=== PATIENT | female | born 1985 | race Caucasian/White ===

== ENCOUNTER 2017-01-20 21:45 | Inpatient (IN) | payer OTHER ==
[~2017-01-20] VITALS: Ht 172.7 cm; Wt 88.0 kg
--- NOTE | ~2017-01-20 | OR ---
ADMIT: 01/20/2017 RM/LOC: [address] [facility] MR#: [id number] [address] [address] JOCY BENNETT [address] [address] [facility] [place] [address] Operative/Delivery Room Report SEX: F AGE: 31 : 1985 SURGERY DATE: 01/21/2017 SURGEON: Leticia Sparks MD NAME OF PROCEDURE: Spontaneous vaginal delivery. PREOPERATIVE DIAGNOSES: 1. Intrauterine at 39-4/7th weeks' gestation. 2. Rh negative status. POSTOPERATIVE DIAGNOSES: 1. Intrauterine at 39-4/7th weeks' gestation. 2. Rh negative status. FINDINGS: Liveborn female infant. scores 7 at 1 minute, 9 at 5 minutes. Weight 8 pounds 15 ounces. ESTIMATED BLOOD LOSS: 400 mL. ANESTHESIA: Epidural. COMPLICATIONS: None. INDICATIONS FOR PROCEDURE: The patient is a 31-year-old 1, para 0, who presented to Labor and Delivery on 01/20/2017, with complaints of contractions. The patient progressed from 3 to 4 cm dilated. She then had minimal cervical change. Pitocin augmentation of labor was then started. The patient progressed through labor approximately 7 cm dilated. At that point, artificial rupture of membranes was performed. The patient then progressed through labor to completely dilated and pushed, bringing the 's vertex to the perineum. DESCRIPTION OF PROCEDURE: The patient was noted to be complete and pushing with the infant's vertex at the perineum. The patient pushed and the 's vertex delivered in the ANABELLA position over midline. She continued to push, anterior shoulder delivered, the posterior shoulder followed, and the ADMIT: 01/20/2017 RM/LOC: [address] [facility] MR#: [id number] [address] [place] [address], [place] [address] JOCY BENNETT [address] [address] [facility] [place] [address] Operative/Delivery Room Report SEX: F AGE: 31 : 1985 remainder of the infant delivered without difficulty as well. The was dried and handed off to the mother's abdomen where nursing personnel were in attendance. Twenty units of Pitocin were placed in IV bag to firm the uterus. The placenta delivered intact spontaneously. The cervix was examined and was noted to be free of lacerations. The vaginal vault and perineum were examined, there was noted to be a partial third-degree laceration. The sphincter muscle which was partially torn was brought together with 2 additional [id number] stitches of 2-0 Vicryl. The remainder of the repair was repaired in the usual fashion as first and second-degree perineal lacerations. The patient tolerated the procedure well. All sponge and needle counts were correct. The patient and infant recovered in the room in stable condition. Leticia Sparks MD/ garcia JOB #: [id number] CC: Leticia Sparks, Attending Physician Leticia Sparks, Family Physician
--- NOTE | ~2017-01-20 | FD ---
ADMIT: 01/20/2017 RM/LOC: [address] [facility] MR#: [id number] [address] [address] JOCY BENNETT [address] [address] [facility] [place] [address] Final Diagnosis SEX: F AGE: 31 : 1985 ADMISSION DATE: 01/20/2017 DISCHARGE DATE: 01/23/2017 FINAL DIAGNOSES: 1. Status post spontaneous vaginal delivery at 39 weeks' 5 days' estimated gestational age. 2. Rhesus negative. PROCEDURE: 1. Spontaneous vaginal delivery. 2. Third-degree perineal laceration repair. Leticia Sparks MD/ marcy JOB #: [id number] CC: Leticia Sparks MD, Attending Physician Leticia Sparks MD, Family Physician
--- NOTE | ~2017-01-20 | HP ---
ADMIT: 01/20/2017 RM/LOC: [address] [facility] MR#: [id number] [address] [address] JOCY BENNETT Jermaine [address] [address] [facility] [place] [address] History and Physical SEX: F AGE: 31 : 1985 DATE OF SERVICE: REASON FOR ADMISSION: Contractions. HISTORY OF PRESENT ILLNESS: The patient is a 31-year-old 1, para 0, who presented to Labor and Delivery at 39-4/7th weeks' gestation with complaints of contractions. The patient was noted to have cervical change on admission and was therefore admitted in active labor. The patient's has been complicated by Rh negative status, but has otherwise been uncomplicated. At the time of admission, she complained of contractions. She denied any vaginal bleeding or loss of fluid. LABORATORY DATA: Blood type O negative, antibody screen negative, RPR nonreactive, rubella immune, group B Strep negative, HIV negative. Gonorrhea and chlamydia negative, and hepatitis B surface antigen negative. PAST MEDICAL HISTORY: Noncontributory. PAST SURGICAL HISTORY: Tonsils and adenoids and right knee ACL repair in 2014. CURRENT MEDICATIONS: B complex vitamin daily, calcium supplement daily, potassium daily, and vitamins daily. ALLERGIES: BACTRIM, WHICH CAUSES RASH AND ITCHING. SOCIAL HISTORY: The patient is . She denies any alcohol, tobacco, or drug use. FAMILY HISTORY: Significant for father with hypertension. PHYSICAL EXAMINATION: VITAL SIGNS: On admission, blood pressure 130/90, pulse 101, temperature 96.5, and respirations 18. GENERAL: The patient is alert and oriented, no acute distress. HEART: Regular rate and rhythm without murmurs, gallops, or rubs. LUNGS: Clear to auscultation bilaterally. ADMIT: 01/20/2017 RM/LOC: [address] [facility] MR#: [id number] [address] [facility] [address] [place] [id number] VANSAIMAJOCY [address] [address] History and Physical SEX: F AGE: 31 : 1985 ABDOMEN: Soft, nontender, and gravid. EXTREMITIES: 1+ edema. No calf tenderness. heart tones are in the 140s with moderate variability and accelerations present. Contractions every 5 to 6 minutes, cervix 4 cm dilated, 90% effaced, and -1 station. ASSESSMENT AND PLAN: 1. A 31-year-old 1, para 0, at 39-4/7th weeks' gestation. 2. Active labor. Plan to admit in labor and will anticipate spontaneous vaginal delivery. 3. Rh negative. We will give RhoGAM if indicated . Leticia Sparks MD/ garcia JOB #: [id number] CC: Leticia Sparks, Attending Physician Leticia Sparks, Family Physician
[2017-01-24] MEDS ORDERED: IRON325 M1 PO (06:21)
[2017-01-24] MEDS ORDERED: PRENATAL VIT1 TAB PO (06:21)
[2017-01-24] MEDS ORDERED: NIPPLECREAM TP (06:21)
--- NOTE | 2017-02-21 09:38 | OR ---
ADMIT: 01/20/2017 RM/LOC: 229 [facility] MR#: [id number] [address] [address] VANSAIMA JOCY Dean [address] [address] [facility] [place] [address] Operative/Delivery Room Report SEX: F AGE: 31 : 1985 SURGERY DATE: 01/21/2017 SURGEON: Leticia Sparks MD PROCEDURE: Removal of epidural catheter. INDICATIONS FOR PROCEDURE: The patient is a 31-year-old 1, para 0, who presented to Labor and Delivery in active labor. The patient had an epidural placed for pain control during labor. DESCRIPTION OF PROCEDURE: Following delivery, the patient was placed in a sitting position. The patient's epidural catheter was removed without difficulty and the blue tip was noted to be intact. The patient tolerated the procedure well. Leticia Sparks MD/ garcia JOB #: [id number] CC: Leticia Sparks, Attending Physician Leticia Sparks, Family Physician
== END 2017-01-23 12:40 | disposition home or self-care (01) | DRG 775 ==
LOC: BC 21:45 → 2LDRP 21:45 → BC 01-23 08:00 → 2LDRP 01-23 12:40
PROVIDERS: ADMIT Obstetrics & Gynecology
PROC: 0DQR0ZZ Repair Anal Sphincter, Open Approach (ICD-10-PCS; principal; 2017-01-21)
PROC: 10907ZC Drainage of Amniotic Fluid, Therapeutic from Products of Conception, Via Natural or Artificial Opening (ICD-10-PCS; principal; 2017-01-21)
PROC: 10E0XZZ Delivery of Products of Conception, External Approach (ICD-10-PCS; principal; 2017-01-21)
DX: O70.20 Third degree perineal laceration during delivery, unspecified (principal); Z37.0 Single live birth; Z3A.39 39 weeks gestation of pregnancy